=== PATIENT | female | born 1960 | race African-American/Black ===

== ENCOUNTER 2017-08-03 11:01 | Emergency (ER) | payer BC, OTHER ==
[~2017-08-03] VITALS: Ht 154.9 cm; Wt 107.0 kg
[~2017-08-03 11:01] MED LIST: ATOR-2 PO; ATOR20TA65; HYDR12.54; HYDR25TA PO; INSLAN; KEPP500 PO; LISI1TAB11 PO; METF500T4; METF850T2 PO; OLME20TA14 PO
[2017-08-03] MEDS ORDERED: LOSA50TA20 PO (11:12)
[2017-08-03] MEDS ORDERED: AMLO10TA80 PO (11:12)
[2017-08-03] MEDS ORDERED: CHLO25TA2 PO (11:12)
[2017-08-03] MEDS ORDERED: DULA1.5P SQ (11:12)
[2017-08-03] MEDS ORDERED: LEVE500T19 PO (11:12)
[2017-08-03 13:47] VITALS: BP 156/86
== END 2017-08-03 14:32 | disposition home or self-care (01) ==
LOC: ER 11:31
DX: S29.012A Strain of muscle and tendon of back wall of thorax, initial encounter (principal); X58.XXXA Exposure to other specified factors, initial encounter; E11.9 Type 2 diabetes mellitus without complications; I10 Essential (primary) hypertension; M10.9 Gout, unspecified; Z79.4 Long term (current) use of insulin; Z88.5 Allergy status to narcotic agent
CPT/HCPCS: 99282; Z7610

== ENCOUNTER 2024-04-30 14:53 | Inpatient (IN) | payer BC, OTHER ==
[~2024-04-30] VITALS: Ht 162.6 cm; Wt 113.9 kg
[~2024-04-30 14:53] MED LIST changes: +AMLO10TA80 PO; +CHLO25TA2 PO; +DULA1.5P SQ; +LEVE500T19 PO; +LOSA50TA41 PO; +METF-414; +METF-415 PO; -METF500T4; -METF850T2 PO; +OLME20TA13 PO; -OLME20TA14 PO
[2024-04-30 15:50] LABS: HEMATOCRIT. 39.4 % (36.0-48.0); HEMOGLOBIN. 12.6 g/dL (12.0-16.0); MEAN CORPUSCULAR HGB CONC 31.9 g/dL (31.0-37.0); MEAN CORPUSCULAR VOLUME 87.6 fL (81.0-99.0); MEAN PLATELET VOLUME 8.9 fl (7.4-10.4); PLATELET 580 x1000/uL (130-400); RED CELL DISTRIBUTION WIDTH 16.6 % (11.6-14.6); WHITE BLOOD COUNT 17.8 x1000/uL (4.5-11.0)
[2024-04-30 15:51] LABS: DIFFERENTIAL COMMENT 1
[2024-04-30 15:53] LABS: CHLORIDE 99 mEq/L (98-107); POTASSIUM 5.3 mEq/L (3.5-5.1); SODIUM 130 mEq/L (136-145)
[2024-04-30 15:54] LABS: CALCIUM 9.7 mg/dL (8.7-10.4); CARBON DIOXIDE 16 mEq/L (21-32)
[2024-04-30 15:59] LABS: CREATININE 4.2 mg/dL (0.6-1.0); GLUCOSE 204 mg/dL (70-105); TROPONIN I HIGH SENSITIVITY 5 ng/L (3.0-34); UREA NITROGEN BLOOD 73 mg/dL (9-23)
[2024-04-30 16:15] LABS: PLATELET ESTIMATE SLIGHTLY INCREASED
[2024-04-30 16:53] LABS: ALANINE AMINOTRANSFERASE 8 IU/L (10-49); ALBUMIN 4.2 g/dL (3.2-4.8); ASPARTATE AMINOTRANSFERASE 16 IU/L (<34); BILIRUBIN TOTAL 0.3 mg/dL (0.1-1.0)
[2024-04-30 16:56] LABS: BILIRUBIN DIRECT < 0.1 mg/dL (<=3.0)
[2024-04-30 17:04] LABS: LACTIC ACID 2.8 mmol/L (0.4-2.0)
[2024-04-30] MEDS: CEFTRIAXONE 1GM/50ML 50 ML IV ONE (17:18)
[2024-04-30] MEDS: ACETAMINOPHEN 500MG TABLET PO ONE (17:19)
[2024-04-30] MEDS: SODIUM CHLORIDE 0.9% 1000ML BAG (SEPSIS BOLUS) IV ONE (17:23)
[2024-04-30] MEDS: HEPARIN 80 UNITS/KG BOLUS IV NR (22:37)
[2024-04-30] MEDS: HEPARIN 25,000 UNITS PREMIX 250 ML IV SCH (22:47)
[2024-05-01] MEDS ORDERED: HEPARIN BOLUS PRN aPTT <36 IV (04:00)
[2024-05-01] MEDS ORDERED: HEPARIN BOLUS PRN aPTT 37-44 IV (04:00)
[2024-05-01] MEDS ORDERED: CLONIDINE 0.1MG TABLET PO PRN (15:30)
[2024-05-01] MEDS ORDERED: DOCUSATE SODIUM 100MG CAPSULE PO PRN (15:30)
[2024-05-01] MEDS: PIPERACILLIN/TAZO 3.375G/50ML 50 ML IV NR (15:45)
[2024-05-01] MEDS: BLOOD SUGAR DIAGNOSTIC STRIP TEST SCH (16:45)
[2024-05-01] MEDS: INSULIN LISPRO 100 UNITS/ML SUBCUT SCH (17:53)
[2024-05-01] MEDS: ENOXAPARIN 100MG/ML SYR SUBCUT SCH (18:00)
[2024-05-01] MEDS ORDERED: NIFE-49 PO (19:00)
[2024-05-01] MEDS ORDERED: METF-414 PO (19:00)
[2024-05-01] MEDS ORDERED: CRES10 PO (19:00)
[2024-05-01] MEDS ORDERED: ISOS120T13 PO (19:00)
[2024-05-01] MEDS ORDERED: ALLO100T PO (19:00)
[2024-05-01] MEDS ORDERED: DAPA10TA PO (19:00)
[2024-05-01] MEDS ORDERED: LOSA100T33 PO (19:00)
[2024-05-01] MEDS ORDERED: TIRZ10PE SUBCUT (19:00)
[2024-05-01 19:04] LABS: HEMATOCRIT. 39.5 % (36.0-48.0); HEMOGLOBIN. 12.8 g/dL (12.0-16.0); MEAN CORPUSCULAR HEMOGLOBIN 28.4 pg (28.0-32.0); MEAN CORPUSCULAR HGB CONC 32.4 g/dL (31.0-37.0); MEAN CORPUSCULAR VOLUME 87.9 fL (81.0-99.0); MEAN PLATELET VOLUME 9.1 fl (7.4-10.4); PLATELET 564 x1000/uL (130-400); RED BLOOD CELL COUNT 4.49 mill/uL (4.2-5.4); RED CELL DISTRIBUTION WIDTH 16.1 % (11.6-14.6); WHITE BLOOD COUNT 18.1 x1000/uL (4.5-11.0)
[2024-05-01 19:06] LABS: DIFFERENTIAL COMMENT 1
[2024-05-01 19:14] LABS: CHLORIDE 99 mEq/L (98-107)
[2024-05-01 19:28] LABS: PLATELET ESTIMATE NORMAL
[2024-05-01 20:23] LABS: POTASSIUM 6.1 mEq/L (3.5-5.1); SODIUM 131 mEq/L (136-145)
[2024-05-01 20:24] LABS: CALCIUM 9.2 mg/dL (8.7-10.4)
[2024-05-01 20:29] LABS: CREATININE 4.3 mg/dL (0.6-1.0); GLUCOSE 146 mg/dL (70-105)
[2024-05-01 20:30] LABS: LDL CHOLESTEROL 55 mg/dL (5-100); TRIGLYCERIDE 143 mg/dL (0-150); UREA NITROGEN BLOOD 83 mg/dL (9-23)
[2024-05-01 20:31] LABS: ALANINE AMINOTRANSFERASE 11 IU/L (10-49); ASPARTATE AMINOTRANSFERASE 17 IU/L (<34); BILIRUBIN DIRECT 0.1 mg/dL (<=3.0); CHOLESTEROL 136 mg/dL (<200); HDL CHOLESTEROL 51 mg/dL (>65)
[2024-05-01 20:32] LABS: BILIRUBIN TOTAL 0.3 mg/dL (0.1-1.0); PROTEIN TOTAL 6.5 g/dL (6.0-8.3)
[2024-05-01 20:33] LABS: THYROID STIMULATING HORMONE 6.77 uIU/mL (0.55-4.78)
[2024-05-01 20:39] LABS: CARBON DIOXIDE < 10 mEq/L (21-32)
[2024-05-01] MEDS: DILTIAZEM HCL 30MG TABLET PO SCH (22:00)
[2024-05-01 22:05] LABS: PARTIAL THROMBOPLASTIN TIME 31.9 sec (23.4-31.0); PROTHROMBIN TIME 11.2 sec (9.6-11.0)
[2024-05-01] MEDS ORDERED: SODIUM POLYSTYRENE SULFONATE 15 G/60 ML BOT PO ONE (23:00)
[2024-05-01 23:27] VITALS: BP 112/50; PULSE 98; RESP 18; TEMP 35.584
[2024-05-02] VITALS: BP 112/50; PULSE 92; RESP 18; TEMP 35.5584; O2SAT 96
[2024-05-02] MEDS: SODIUM BICARBONATE 8.4% 50MEQ/50ML SYR IV NR (01:02)
[2024-05-02] MEDS: SODIUM ZIRCONIUM CYCLOSILICATE 10GM/PACKET PO NR ×2 (01:02→10:21)
[2024-05-02 01:32] LABS: CREATINE KINASE MB FRACTION 2.7 ng/mL (0.5-3.6)
[2024-05-02 04:00] VITALS: BP 113/50; PULSE 73; RESP 18; TEMP 35.66952; O2SAT 98
[2024-05-02] MEDS: LEVOTHYROXINE SODIUM 100MCG TABLET PO SCH (06:04)
[2024-05-02 07:07] LABS: POTASSIUM 5.2 mEq/L (3.5-5.1)
[2024-05-02 07:08] LABS: CALCIUM 9.5 mg/dL (8.7-10.4)
[2024-05-02 07:12] LABS: CREATININE 4.1 mg/dL (0.6-1.0)
[2024-05-02 07:13] LABS: CREATINE KINASE MB FRACTION 2.6 ng/mL (0.5-3.6)
[2024-05-02 07:17] LABS: HEMATOCRIT. 37.4 % (36.0-48.0); HEMOGLOBIN. 11.9 g/dL (12.0-16.0); MEAN CORPUSCULAR HEMOGLOBIN 27.5 pg (28.0-32.0); MEAN CORPUSCULAR HGB CONC 31.8 g/dL (31.0-37.0); MEAN CORPUSCULAR VOLUME 86.4 fL (81.0-99.0); MEAN PLATELET VOLUME 9.3 fl (7.4-10.4); PLATELET 568 x1000/uL (130-400); RED BLOOD CELL COUNT 4.32 mill/uL (4.2-5.4); RED CELL DISTRIBUTION WIDTH 16.3 % (11.6-14.6)
[2024-05-02 07:19] LABS: DIFFERENTIAL COMMENT 1
[2024-05-02 08:00] VITALS: BP 106/50; PULSE 75; RESP 18; TEMP 36.72516; O2SAT 92
[2024-05-02] MEDS: PIPERACILLIN/TAZO 3.375G/50ML 50 ML IV SCH (08:37)
[2024-05-02] MEDS: ACETAMINOPHEN 325MG TABLET PO PRN (08:38)
[2024-05-02] MEDS ORDERED: SODIUM POLYSTYRENE SULFONATE 15 G/60 ML BOT PO ONE (09:45)
[2024-05-02 12:00] VITALS: BP 122/40; PULSE 81; RESP 20; TEMP 35.72508; O2SAT 96
[2024-05-02 12:37] LABS: CREATINE KINASE 82 IU/L (34-145)
[2024-05-02 15:39] LABS: CLARITY URINE CLOUDY (CLEAR); COLOR URINE DARK YELLOW (YELLOW); GLUCOSE URINE NEGATIVE (NEGATIVE); KETONES URINE NEGATIVE (NEGATIVE); LEUKOCYTE ESTERASE URINE TRACE (NEGATIVE); NITRITE URINE NEGATIVE (NEGATIVE); OCCULT BLOOD URINE 3+ (NEGATIVE); PROTEIN URINE TRACE (NEGATIVE); SPECIFIC GRAVITY URINE 1.021 (1.005-1.030); UROBILINOGEN URINE 0.2 E.U./dL (0.2-1.0)
[2024-05-02 15:46] LABS: *AMPHETAMINES SCREEN URINE NEGATIVE (NEGATIVE); *BARBITURATES SCREEN URINE NEGATIVE (NEGATIVE); *BENZODIAZEPINES SCREEN URINE NEGATIVE (NEGATIVE); *COCAINE SCREEN URINE NEGATIVE (NEGATIVE); CANNABINOID URINE SCREEN NEGATIVE (NEGATIVE); ECSTASY MDMA SCREEN URINE NEGATIVE (NEGATIVE); METHADONE URINE SCREEN NEGATIVE (NEGATIVE); OPIATES URINE SCREEN NEGATIVE (NEGATIVE); PHENCYCLIDINE URINE SCREEN NEGATIVE (NEGATIVE)
[2024-05-02 16:00] VITALS: BP 113/43; PULSE 92; RESP 17; TEMP 37.39188; O2SAT 99
[2024-05-02 16:04] LABS: BACTERIA URINE 2+; SQUAMOUS EPITHELIAL CELL URINE 2+ /lpf (RARE/1+)
[2024-05-02 16:05] LABS: RBC URINE 15-25 /hpf (0-2); WBC URINE 0-2 /hpf (0-2)
[2024-05-02 17:38] LABS: ANISOCYTOSIS 1+; PLATELET ESTIMATE INCREASED
[2024-05-02 20:00] VITALS: BP 132/66; PULSE 94; RESP 20; TEMP 36.61404; O2SAT 97
[2024-05-03] VITALS: BP 107/67; PULSE 89; RESP 19; TEMP 36.55848; O2SAT 97
[2024-05-03 04:00] VITALS: BP 119/71; PULSE 90; RESP 18; TEMP 36.33624; O2SAT 99
[2024-05-03 06:43] LABS: POTASSIUM 4.9 mEq/L (3.5-5.1)
[2024-05-03 06:44] LABS: CALCIUM 9.1 mg/dL (8.7-10.4)
[2024-05-03 06:49] LABS: CREATININE 4.8 mg/dL (0.6-1.0)
[2024-05-03 06:54] LABS: HEMATOCRIT. 36.8 % (36.0-48.0); HEMOGLOBIN. 11.8 g/dL (12.0-16.0); MEAN CORPUSCULAR HEMOGLOBIN 27.6 pg (28.0-32.0); MEAN CORPUSCULAR VOLUME 86.1 fL (81.0-99.0); MEAN PLATELET VOLUME 9.2 fl (7.4-10.4); PLATELET 560 x1000/uL (130-400); RED BLOOD CELL COUNT 4.28 mill/uL (4.2-5.4); WHITE BLOOD COUNT 18.8 x1000/uL (4.5-11.0)
[2024-05-03 07:31] LABS: DIFFERENTIAL COMMENT 1
[2024-05-03 08:00] VITALS: BP 108/42; PULSE 85; RESP 18; TEMP 36.55848; O2SAT 98
[2024-05-03 12:00] VITALS: BP 99/56; PULSE 80; RESP 18; TEMP 36.16956; O2SAT 99
[2024-05-03 15:19] LABS: PLATELET ESTIMATE INCREASED
[2024-05-03 16:00] VITALS: BP 108/50; PULSE 85; RESP 18; TEMP 36.72516; O2SAT 98
[2024-05-03 20:00] VITALS: BP 115/65; PULSE 94; RESP 19; TEMP 36.114; O2SAT 97
[2024-05-04] VITALS: BP 128/79; PULSE 91; RESP 19; TEMP 36.3918; O2SAT 100
[2024-05-04 04:00] VITALS: BP 103/40; PULSE 81; RESP 18; TEMP 36.33624; O2SAT 99
[2024-05-04 06:47] LABS: HEMATOCRIT. 37.3 % (36.0-48.0); HEMOGLOBIN. 11.8 g/dL (12.0-16.0); MEAN CORPUSCULAR HEMOGLOBIN 27.7 pg (28.0-32.0); MEAN CORPUSCULAR HGB CONC 31.7 g/dL (31.0-37.0); MEAN CORPUSCULAR VOLUME 87.4 fL (81.0-99.0); MEAN PLATELET VOLUME 8.9 fl (7.4-10.4); PLATELET 588 x1000/uL (130-400); RED BLOOD CELL COUNT 4.27 mill/uL (4.2-5.4); RED CELL DISTRIBUTION WIDTH 16.1 % (11.6-14.6); WHITE BLOOD COUNT 15.1 x1000/uL (4.5-11.0)
[2024-05-04 06:51] LABS: DIFFERENTIAL COMMENT 1
[2024-05-04 06:55] LABS: PROTHROMBIN TIME 10.9 sec (9.6-11.0)
[2024-05-04 06:56] LABS: CHLORIDE 97 mEq/L (98-107); POTASSIUM 5.2 mEq/L (3.5-5.1); SODIUM 128 mEq/L (136-145)
[2024-05-04 06:59] LABS: CALCIUM 9.4 mg/dL (8.7-10.4); CARBON DIOXIDE 16 mEq/L (21-32)
[2024-05-04 07:04] LABS: GLUCOSE 153 mg/dL (70-105)
[2024-05-04 07:05] LABS: ALBUMIN 3.9 g/dL (3.2-4.8); UREA NITROGEN BLOOD 79 mg/dL (9-23)
[2024-05-04 07:06] LABS: ALANINE AMINOTRANSFERASE 12 IU/L (10-49); ASPARTATE AMINOTRANSFERASE 20 IU/L (<34); BILIRUBIN DIRECT 0.1 mg/dL (<=3.0)
[2024-05-04 07:07] LABS: BILIRUBIN TOTAL 0.3 mg/dL (0.1-1.0); PROTEIN TOTAL 6.6 g/dL (6.0-8.3)
[2024-05-04 08:00] VITALS: BP 101/47; PULSE 89; RESP 16; TEMP 36.00288; O2SAT 100
[2024-05-04 09:03] LABS: CREATININE 5.5 mg/dL (0.6-1.0)
[2024-05-04 09:04] LABS: PHOSPHORUS 9.1 mg/dL (2.5-4.9)
[2024-05-04] MEDS ORDERED: SODIUM POLYSTYRENE SULFONATE 15 G/60 ML BOT PO ONE (10:30)
[2024-05-04 12:00] VITALS: BP 129/51; PULSE 83; RESP 18; TEMP 36.16956; O2SAT 100
[2024-05-04] MEDS: SEVELAMER CARBONATE 800 MG TABLET PO SCH (12:42)
[2024-05-04] MEDS: SODIUM ZIRCONIUM CYCLOSILICATE 10GM/PACKET PO NR (12:44)
[2024-05-04] MEDS: ONDANSETRON HCL 4MG/2ML INJ IV PRN (12:44)
[2024-05-04 12:52] LABS: ANISOCYTOSIS 1+; PLATELET ESTIMATE INCREAS
[2024-05-04] MEDS ORDERED: SEVELAMER CARBONATE 800 MG TABLET PO SCH (14:00)
[2024-05-04 16:00] VITALS: BP 93/63; PULSE 53; RESP 18; TEMP 35.78064; O2SAT 97
[2024-05-04 20:20] VITALS: BP 97/55; PULSE 47; PULSE 90; RESP 18; TEMP 35.89176; O2SAT 99
[2024-05-05] VITALS (15 sets, daily range): BP systolic 83–119; BP diastolic 38–63; PULSE 69–103; RESP 16–22; TEMP 35.5584–36.33624; O2SAT 94–100
[2024-05-05] MEDS: FOLIC ACID/VITAMIN B COMP W-C TABLET PO SCH (09:00)
[2024-05-05] MEDS ORDERED: LIDOCAINE HCL 1% 10 MG/ML 10ML VIAL ONE (09:12)
[2024-05-05] MEDS: SEVELAMER CARBONATE 800 MG TABLET PO SCH (13:10)
[2024-05-05 13:50] LABS: HEMATOCRIT. 32.9 % (36.0-48.0); HEMOGLOBIN. 10.7 g/dL (12.0-16.0); MEAN CORPUSCULAR HEMOGLOBIN 27.5 pg (28.0-32.0); MEAN CORPUSCULAR HGB CONC 32.4 g/dL (31.0-37.0); MEAN CORPUSCULAR VOLUME 84.9 fL (81.0-99.0); MEAN PLATELET VOLUME 8.5 fl (7.4-10.4); PLATELET 492 x1000/uL (130-400); RED BLOOD CELL COUNT 3.88 mill/uL (4.2-5.4); RED CELL DISTRIBUTION WIDTH 16.2 % (11.6-14.6); WHITE BLOOD COUNT 23.8 x1000/uL (4.5-11.0)
[2024-05-05 13:56] LABS: CHLORIDE 101 mEq/L (98-107); POTASSIUM 3.7 mEq/L (3.5-5.1); SODIUM 135 mEq/L (136-145)
[2024-05-05 13:57] LABS: CALCIUM 8.8 mg/dL (8.7-10.4); CARBON DIOXIDE 24 mEq/L (21-32)
[2024-05-05 13:58] LABS: PROTHROMBIN TIME 11.3 sec (9.6-11.0)
[2024-05-05 14:02] LABS: GLUCOSE 119 mg/dL (70-105); UREA NITROGEN BLOOD 46 mg/dL (9-23)
[2024-05-05 14:04] LABS: PHOSPHORUS 5.1 mg/dL (2.5-4.9)
[2024-05-05 14:05] LABS: CREATININE 3.3 mg/dL (0.6-1.0)
[2024-05-05 14:09] LABS: HEPATITIS B SURFACE AB 4.7 mIU/mL (<10)
[2024-05-05 14:14] LABS: DIFFERENTIAL COMMENT 1
[2024-05-05 14:20] LABS: HEPATITIS B SURFACE ANTIGEN NEGATIVE (Negative)
[2024-05-05 14:40] LABS: HEPATITIS A AB IGM NEGATIVE (Negative)
[2024-05-05 14:41] LABS: HEPATITIS B CORE AB IGM NEGATIVE (Negative)
[2024-05-05 14:42] LABS: HEPATITIS C AB NON REACTIVE (Neg) (Negative)
[2024-05-05 17:05] LABS: ANISOCYTOSIS 1+; PLATELET ESTIMATE INCREASED
[2024-05-05] MEDS: IPRATROPIUM/ALBUTEROL 0.5-3(2.5)MG/3ML NEB HHN PRN (23:48)
[2024-05-06] VITALS (9 sets, daily range): BP systolic 89–102; BP diastolic 35–71; PULSE 47–99; RESP 16–24; TEMP 35.89176–37.00296; O2SAT 94–98
[2024-05-06 07:26] LABS: CARBON DIOXIDE 20 mEq/L (21-32); CHLORIDE 96 mEq/L (98-107); POTASSIUM 4.7 mEq/L (3.5-5.1); SODIUM 131 mEq/L (136-145)
[2024-05-06 07:27] LABS: CALCIUM 8.9 mg/dL (8.7-10.4)
[2024-05-06 07:28] LABS: HEMATOCRIT. 32.1 % (36.0-48.0); HEMOGLOBIN. 10.5 g/dL (12.0-16.0); MEAN CORPUSCULAR HEMOGLOBIN 27.9 pg (28.0-32.0); MEAN CORPUSCULAR HGB CONC 32.8 g/dL (31.0-37.0); MEAN PLATELET VOLUME 8.8 fl (7.4-10.4); PLATELET 446 x1000/uL (130-400); RED BLOOD CELL COUNT 3.78 mill/uL (4.2-5.4); RED CELL DISTRIBUTION WIDTH 16.1 % (11.6-14.6); WHITE BLOOD COUNT 21.4 x1000/uL (4.5-11.0)
[2024-05-06 07:32] LABS: GLUCOSE 192 mg/dL (70-105); UREA NITROGEN BLOOD 75 mg/dL (9-23)
[2024-05-06 07:33] LABS: CREATININE 5.9 mg/dL (0.6-1.0)
[2024-05-06 07:34] LABS: DIFFERENTIAL COMMENT 1
[2024-05-06 08:14] LABS: PHOSPHORUS 9.2 mg/dL (2.5-4.9)
[2024-05-06] MEDS: IPRATROPIUM/ALBUTEROL 0.5-3(2.5)MG/3ML NEB HHN SCH (09:39)
[2024-05-06 11:55] LABS: ANISOCYTOSIS 1+; PLATELET ESTIMATE SLIGHTLY INCREASED
[2024-05-06] MEDS: MIDODRINE HCL 5MG TABLET PO SCH (15:40)
[2024-05-06] MEDS: MEROPENEM 1G/100ML 100 ML IV SCH (18:16)
[2024-05-06] MEDS: ALBUMIN HUMAN 25GM/100ML (25%) IV SCH (21:29)
[2024-05-07] VITALS (8 sets, daily range): BP systolic 99–117; BP diastolic 40–60; PULSE 55–101; RESP 16–20; TEMP 36.05844–37.05852; O2SAT 95–100
[2024-05-07 06:16] LABS: POTASSIUM 4.7 mEq/L (3.5-5.1)
[2024-05-07 06:17] LABS: CALCIUM 8.6 mg/dL (8.7-10.4)
[2024-05-07 06:18] LABS: HEMATOCRIT. 33.5 % (36.0-48.0); HEMOGLOBIN. 10.8 g/dL (12.0-16.0); MEAN CORPUSCULAR HEMOGLOBIN 27.6 pg (28.0-32.0); MEAN CORPUSCULAR HGB CONC 32.2 g/dL (31.0-37.0); MEAN CORPUSCULAR VOLUME 85.8 fL (81.0-99.0); MEAN PLATELET VOLUME 8.7 fl (7.4-10.4); PLATELET 385 x1000/uL (130-400); RED CELL DISTRIBUTION WIDTH 15.6 % (11.6-14.6); WHITE BLOOD COUNT 23.7 x1000/uL (4.5-11.0)
[2024-05-07 06:28] LABS: CREATININE 6.3 mg/dL (0.6-1.0)
[2024-05-07 06:37] LABS: DIFFERENTIAL COMMENT 1
[2024-05-07 16:36] LABS: NUCLEATED RED BLOOD CELLS 1 /100 WBC; PLATELET ESTIMATE NORMAL
[2024-05-08] VITALS (16 sets, daily range): BP systolic 80–117; BP diastolic 32–68; PULSE 82–111; RESP 18–20; TEMP 36.61404–37.61412; O2SAT 95–100
[2024-05-08 05:43] LABS: HEMATOCRIT. 35.5 % (36.0-48.0); HEMOGLOBIN. 11.3 g/dL (12.0-16.0); MEAN CORPUSCULAR HEMOGLOBIN 27.4 pg (28.0-32.0); MEAN CORPUSCULAR HGB CONC 31.9 g/dL (31.0-37.0); MEAN CORPUSCULAR VOLUME 85.8 fL (81.0-99.0); MEAN PLATELET VOLUME 8.7 fl (7.4-10.4); PLATELET 394 x1000/uL (130-400); RED BLOOD CELL COUNT 4.14 mill/uL (4.2-5.4); RED CELL DISTRIBUTION WIDTH 15.8 % (11.6-14.6); WHITE BLOOD COUNT 23.2 x1000/uL (4.5-11.0)
[2024-05-08 06:18] LABS: CALCIUM 8.7 mg/dL (8.7-10.4); CARBON DIOXIDE 21 mEq/L (21-32); CHLORIDE 96 mEq/L (98-107); POTASSIUM 4.9 mEq/L (3.5-5.1); SODIUM 130 mEq/L (136-145)
[2024-05-08 06:24] LABS: GLUCOSE 147 mg/dL (70-105); UREA NITROGEN BLOOD 82 mg/dL (9-23)
[2024-05-08 06:53] LABS: DIFFERENTIAL COMMENT 1
[2024-05-08 07:43] LABS: CREATININE 7.1 mg/dL (0.6-1.0)
[2024-05-08 14:32] LABS: NUCLEATED RED BLOOD CELLS 1 /100 WBC; PLATELET ESTIMATE NORMAL
[2024-05-09] VITALS (12 sets, daily range): BP systolic 95–112; BP diastolic 4–69; PULSE 88–100; RESP 16–20; TEMP 35.94732–36.9474; O2SAT 94–100
[2024-05-10] VITALS (16 sets, daily range): BP systolic 94–139; BP diastolic 21–107; PULSE 75–104; RESP 17–22; TEMP 36.114–37.61412; O2SAT 90–100
[2024-05-10 06:30] LABS: CARBON DIOXIDE 20 mEq/L (21-32); CHLORIDE 98 mEq/L (98-107); POTASSIUM 5.3 mEq/L (3.5-5.1); SODIUM 129 mEq/L (136-145)
[2024-05-10 06:31] LABS: CALCIUM 8.6 mg/dL (8.7-10.4)
[2024-05-10 06:34] LABS: EOSINOPHILS % 0.4 % (0.0-5.0); HEMATOCRIT. 35.6 % (36.0-48.0); HEMOGLOBIN. 11.4 g/dL (12.0-16.0); LYMPHOCYTES % 7.8 % (20.0-50.0); MEAN CORPUSCULAR HEMOGLOBIN 27.6 pg (28.0-32.0); MEAN CORPUSCULAR VOLUME 86.1 fL (81.0-99.0); MONOCYTES % 6.3 % (2.0-8.0); NEUTROPHILS % 85.5 % (40.0-76.0); PLATELET 341 x1000/uL (130-400); RED BLOOD CELL COUNT 4.13 mill/uL (4.2-5.4); WHITE BLOOD COUNT 20.4 x1000/uL (4.5-11.0)
[2024-05-10 06:36] LABS: GLUCOSE 135 mg/dL (70-105); UREA NITROGEN BLOOD 57 mg/dL (9-23)
[2024-05-10 06:38] LABS: PHOSPHORUS 7.2 mg/dL (2.5-4.9)
[2024-05-10 06:41] LABS: CREATININE 6.9 mg/dL (0.6-1.0)
[2024-05-11] VITALS (10 sets, daily range): BP systolic 95–119; BP diastolic 23–65; PULSE 56–91; RESP 18–20; TEMP 36.114–36.3918; O2SAT 96–100
[2024-05-11] MEDS: MAGNESIUM/ALUMINUM HYDROXIDE/SIMETHICONE 30ML UDC PO PRN (00:30)
[2024-05-11 06:50] LABS: CALCIUM 8.8 mg/dL (8.7-10.4); POTASSIUM 5.3 mEq/L (3.5-5.1)
[2024-05-11 07:32] LABS: CREATININE 6.3 mg/dL (0.6-1.0)
[2024-05-11] MEDS: FAMOTIDINE 20MG/2ML VIAL IV SCH (08:06)
[2024-05-11] MEDS: SODIUM POLYSTYRENE SULFONATE 15 G/60 ML BOT PO NR (10:52)
[2024-05-11 11:09] LABS: HEMATOCRIT. 35.8 % (36.0-48.0); HEMOGLOBIN. 11.4 g/dL (12.0-16.0); MEAN CORPUSCULAR HEMOGLOBIN 27.9 pg (28.0-32.0); MEAN CORPUSCULAR HGB CONC 31.9 g/dL (31.0-37.0); MEAN CORPUSCULAR VOLUME 87.3 fL (81.0-99.0); MEAN PLATELET VOLUME 9.4 fl (7.4-10.4); PLATELET 314 x1000/uL (130-400); RED CELL DISTRIBUTION WIDTH 16.1 % (11.6-14.6); WHITE BLOOD COUNT 21.9 x1000/uL (4.5-11.0)
[2024-05-11 11:11] LABS: DIFFERENTIAL COMMENT 1
[2024-05-11 17:21] LABS: ANISOCYTOSIS 1+; PLATELET ESTIMATE NORMAL
[2024-05-12] VITALS (11 sets, daily range): BP systolic 89–131; BP diastolic 35–74; PULSE 84–104; RESP 18–22; TEMP 35.8362–36.6696; O2SAT 96–100
[2024-05-12 09:14] LABS: BASOPHILS % 0.1 % (0.0-2.0); EOSINOPHILS % 0.2 % (0.0-5.0); HEMATOCRIT. 34.5 % (36.0-48.0); HEMOGLOBIN. 10.9 g/dL (12.0-16.0); LYMPHOCYTES % 7.7 % (20.0-50.0); MEAN CORPUSCULAR HEMOGLOBIN 27.5 pg (28.0-32.0); MEAN CORPUSCULAR HGB CONC 31.6 g/dL (31.0-37.0); MEAN CORPUSCULAR VOLUME 87.1 fL (81.0-99.0); MEAN PLATELET VOLUME 8.6 fl (7.4-10.4); MONOCYTES % 2.9 % (2.0-8.0); NEUTROPHILS % 89.1 % (40.0-76.0); PLATELET 285 x1000/uL (130-400); RED BLOOD CELL COUNT 3.96 mill/uL (4.2-5.4); RED CELL DISTRIBUTION WIDTH 15.9 % (11.6-14.6)
[2024-05-12 09:17] LABS: CHLORIDE 104 mEq/L (98-107); POTASSIUM 4.2 mEq/L (3.5-5.1); SODIUM 135 mEq/L (136-145)
[2024-05-12 09:18] LABS: CALCIUM 8.7 mg/dL (8.7-10.4); CARBON DIOXIDE 21 mEq/L (21-32)
[2024-05-12 09:23] LABS: CREATININE 4.6 mg/dL (0.6-1.0); GLUCOSE 152 mg/dL (70-105); UREA NITROGEN BLOOD 32 mg/dL (9-23)
[2024-05-12 16:08] LABS: PROTHROMBIN TIME 11.2 sec (9.6-11.0)
[2024-05-13] VITALS: BP 93/36; PULSE 75; RESP 19; TEMP 36.28068; O2SAT 95
[2024-05-13 04:00] VITALS: BP 106/39; PULSE 73; RESP 19; TEMP 36.50292; O2SAT 97
[2024-05-13 08:00] VITALS: BP 102/57; PULSE 81; RESP 18; TEMP 36.33624; O2SAT 100
[2024-05-13 10:53] LABS: HEMATOCRIT. 30.9 % (36.0-48.0); HEMOGLOBIN. 9.9 g/dL (12.0-16.0); MEAN CORPUSCULAR HEMOGLOBIN 27.5 pg (28.0-32.0); MEAN CORPUSCULAR HGB CONC 32.1 g/dL (31.0-37.0); MEAN CORPUSCULAR VOLUME 85.6 fL (81.0-99.0); PLATELET 288 x1000/uL (130-400); RED BLOOD CELL COUNT 3.61 mill/uL (4.2-5.4); RED CELL DISTRIBUTION WIDTH 16.1 % (11.6-14.6); WHITE BLOOD COUNT 25.9 x1000/uL (4.5-11.0)
[2024-05-13 10:54] LABS: DIFFERENTIAL COMMENT 1
[2024-05-13 12:00] VITALS: BP 107/44; PULSE 90; RESP 20; TEMP 36.114; O2SAT 100
[2024-05-13 16:00] VITALS: BP 105/51; PULSE 81; RESP 20; TEMP 36.114; O2SAT 99
[2024-05-13 20:34] VITALS: BP 102/38; PULSE 81; RESP 19; TEMP 36.16956; O2SAT 98
[2024-05-14] VITALS (14 sets, daily range): BP systolic 80–110; BP diastolic 39–65; PULSE 61–113; RESP 16–58; TEMP 36.16956–36.61404; O2SAT 93–100
[2024-05-14 02:48] LABS: ANISOCYTOSIS 1+; PLATELET ESTIMATE NORMAL
[2024-05-14] MEDS: LORAZEPAM 1MG TABLET PO PRN (04:28)
[2024-05-14 10:25] LABS: HEMATOCRIT. 31.9 % (36.0-48.0); HEMOGLOBIN. 9.8 g/dL (12.0-16.0); MEAN CORPUSCULAR HEMOGLOBIN 26.8 pg (28.0-32.0); MEAN CORPUSCULAR HGB CONC 30.6 g/dL (31.0-37.0); MEAN CORPUSCULAR VOLUME 87.6 fL (81.0-99.0); MEAN PLATELET VOLUME 8.7 fl (7.4-10.4); PLATELET 307 x1000/uL (130-400); RED BLOOD CELL COUNT 3.64 mill/uL (4.2-5.4); WHITE BLOOD COUNT 27.6 x1000/uL (4.5-11.0)
[2024-05-14 10:32] LABS: DIFFERENTIAL COMMENT 1
[2024-05-14 10:44] LABS: POTASSIUM 5.9 mEq/L (3.5-5.1)
[2024-05-14 10:46] LABS: CALCIUM 8.4 mg/dL (8.7-10.4)
[2024-05-14 10:58] LABS: CREATININE 7.2 mg/dL (0.6-1.0)
[2024-05-14 14:08] LABS: ANISOCYTOSIS 1+; PLATELET ESTIMATE NORMAL
[2024-05-14] MEDS: LACTOBACILLUS GG CAPSULE PO SCH (17:15)
[2024-05-14 17:55] LABS: BG BASE EXCESS -3.9 mmol/L (-2.0-3.0); BG CARBOXYHEMOGLOBIN 0.3 % (0.5-1.5); BG DEOXYHEMOGLOBIN 0.9 % (0.0-5.0); BG FRACTION INSPIRED OXYGEN 32; BG HCO3 ACT 17.9 mmol/L (21.0-28.0); BG OXYGEN SATURATION 99.1 % (94.0-98.0); BG OXYHEMOGLOBIN 98.8 % (94.0-98.0); BG PCO2 23.6 mmHg (32.0-45.0); BG PH 7.498 (7.350-7.450); BG PO2 145.4 mmHg (83.0-108.0); BG SAMPLE SITE LEFT BRACHIAL; BG VENT MODE NASAL CANNULA
[2024-05-14 18:33] LABS: LACTIC ACID 5.3 mmol/L (0.4-2.0)
[2024-05-14] MEDS: IPRATROPIUM/ALBUTEROL 0.5-3(2.5)MG/3ML NEB HHN SCH (21:14)
[2024-05-15] VITALS (14 sets, daily range): BP systolic 80–112; BP diastolic 40–88; PULSE 48–106; RESP 16–20; TEMP 35.89176–36.6696; O2SAT 97–100
[2024-05-15 06:42] LABS: POTASSIUM 5.3 mEq/L (3.5-5.1)
[2024-05-15 06:43] LABS: CALCIUM 8.8 mg/dL (8.7-10.4)
[2024-05-15 06:54] LABS: CREATININE 6.5 mg/dL (0.6-1.0)
[2024-05-15 06:57] LABS: HEMATOCRIT. 32.5 % (36.0-48.0); HEMOGLOBIN. 10.3 g/dL (12.0-16.0); MEAN CORPUSCULAR HEMOGLOBIN 27.5 pg (28.0-32.0); MEAN CORPUSCULAR HGB CONC 31.7 g/dL (31.0-37.0); MEAN CORPUSCULAR VOLUME 86.8 fL (81.0-99.0); MEAN PLATELET VOLUME 9.5 fl (7.4-10.4); PLATELET 278 x1000/uL (130-400); RED BLOOD CELL COUNT 3.74 mill/uL (4.2-5.4); WHITE BLOOD COUNT 28.7 x1000/uL (4.5-11.0)
[2024-05-15 07:25] LABS: DIFFERENTIAL COMMENT 1
[2024-05-15 10:18] LABS: HEMOGLOBIN. 10.2 g/dL (12.0-16.0); MEAN CORPUSCULAR HEMOGLOBIN 27.5 pg (28.0-32.0); MEAN CORPUSCULAR HGB CONC 31.8 g/dL (31.0-37.0); MEAN CORPUSCULAR VOLUME 86.4 fL (81.0-99.0); MEAN PLATELET VOLUME 8.9 fl (7.4-10.4); PLATELET 287 x1000/uL (130-400); RED CELL DISTRIBUTION WIDTH 16.1 % (11.6-14.6); WHITE BLOOD COUNT 24.7 x1000/uL (4.5-11.0)
[2024-05-15 10:26] LABS: DIFFERENTIAL COMMENT 1
[2024-05-15 10:28] LABS: POTASSIUM 5.6 mEq/L (3.5-5.1)
[2024-05-15 10:29] LABS: CALCIUM 8.6 mg/dL (8.7-10.4)
[2024-05-15 10:36] LABS: CREATININE 6.7 mg/dL (0.6-1.0)
[2024-05-15 13:12] LABS: ANISOCYTOSIS 1+; PLATELET ESTIMATE NORMAL
[2024-05-15] MEDS: AZITHROMYCIN 500 MG TABLET PO SCH (14:04)
[2024-05-15 14:35] LABS: ANISOCYTOSIS 1+; PLATELET ESTIMATE NORMAL
[2024-05-15] MEDS: VANCOMYCIN 1,750 MG in DEXT 5% WATER 500 ML IV NR (16:13)
[2024-05-15] MEDS: MEROPENEM 1G/100ML 100 ML IV SCH (17:18)
[2024-05-15] MEDS: ZOLPIDEM TARTRATE 5MG TABLET PO NR (23:59)
[2024-05-16] VITALS (10 sets, daily range): BP systolic 89–146; BP diastolic 42–60; PULSE 39–102; RESP 17–23; TEMP 36.28068–37.66968; O2SAT 94–98
[2024-05-16 06:22] LABS: CHLORIDE 103 mEq/L (98-107); POTASSIUM 5.2 mEq/L (3.5-5.1); SODIUM 138 mEq/L (136-145)
[2024-05-16 06:24] LABS: CALCIUM 8.7 mg/dL (8.7-10.4); CARBON DIOXIDE 23 mEq/L (21-32)
[2024-05-16 06:29] LABS: GLUCOSE 177 mg/dL (70-105); UREA NITROGEN BLOOD 47 mg/dL (9-23)
[2024-05-16 06:31] LABS: ALANINE AMINOTRANSFERASE 12 IU/L (10-49); ASPARTATE AMINOTRANSFERASE 57 IU/L (<34); BILIRUBIN TOTAL 0.2 mg/dL (0.1-1.0)
[2024-05-16 06:32] LABS: PROTEIN TOTAL 5.2 g/dL (6.0-8.3)
[2024-05-16 06:42] LABS: HEMATOCRIT. 29.2 % (36.0-48.0); HEMOGLOBIN. 9.1 g/dL (12.0-16.0); MEAN CORPUSCULAR HGB CONC 31.1 g/dL (31.0-37.0); MEAN CORPUSCULAR VOLUME 86.8 fL (81.0-99.0); MEAN PLATELET VOLUME 9.4 fl (7.4-10.4); PLATELET 264 x1000/uL (130-400); RED BLOOD CELL COUNT 3.36 mill/uL (4.2-5.4); RED CELL DISTRIBUTION WIDTH 16.1 % (11.6-14.6); WHITE BLOOD COUNT 23.9 x1000/uL (4.5-11.0)
[2024-05-16 08:04] LABS: BILIRUBIN DIRECT < 0.1 mg/dL (<=3.0); CREATININE 6.1 mg/dL (0.6-1.0)
[2024-05-16 08:09] LABS: DIFFERENTIAL COMMENT 1
[2024-05-16] MEDS: FAMOTIDINE 20MG/2ML VIAL IV SCH (08:36)
[2024-05-16 09:41] LABS: HEMOGLOBIN. 9.7 g/dL (12.0-16.0); MEAN CORPUSCULAR HEMOGLOBIN 26.8 pg (28.0-32.0); MEAN CORPUSCULAR HGB CONC 30.3 g/dL (31.0-37.0); MEAN CORPUSCULAR VOLUME 88.4 fL (81.0-99.0); MEAN PLATELET VOLUME 9.2 fl (7.4-10.4); PLATELET 267 x1000/uL (130-400); RED BLOOD CELL COUNT 3.62 mill/uL (4.2-5.4); RED CELL DISTRIBUTION WIDTH 16.5 % (11.6-14.6); WHITE BLOOD COUNT 26.4 x1000/uL (4.5-11.0)
[2024-05-16 09:47] LABS: DIFFERENTIAL COMMENT 1
[2024-05-16 10:22] LABS: POTASSIUM 5.5 mEq/L (3.5-5.1)
[2024-05-16 10:23] LABS: CALCIUM 8.8 mg/dL (8.7-10.4)
[2024-05-16 10:29] LABS: CREATININE 6.3 mg/dL (0.6-1.0)
[2024-05-16 20:18] LABS: ANISOCYTOSIS 1+; PLATELET ESTIMATE NORMAL
[2024-05-16 20:56] LABS: PLATELET ESTIMATE NORMAL
[2024-05-17] VITALS (42 sets, daily range): BP systolic 61–141; BP diastolic 19–90; PULSE 42–117; RESP 12–39; TEMP 36.16956–37.66968; O2SAT 92–100
[2024-05-17] MEDS: SODIUM POLYSTYRENE SULFONATE 15 G/60 ML BOT PO NR (01:02)
[2024-05-17 06:21] LABS: CHLORIDE 102 mEq/L (98-107); POTASSIUM 5.8 mEq/L (3.5-5.1); SODIUM 137 mEq/L (136-145)
[2024-05-17 06:22] LABS: CARBON DIOXIDE 18 mEq/L (21-32)
[2024-05-17 06:27] LABS: GLUCOSE 168 mg/dL (70-105)
[2024-05-17 06:28] LABS: UREA NITROGEN BLOOD 52 mg/dL (9-23)
[2024-05-17 07:23] LABS: CREATININE 6.9 mg/dL (0.6-1.0)
[2024-05-17 08:31] LABS: TROPONIN I HIGH SENSITIVITY 15 ng/L (3.0-34)
[2024-05-17] MEDS ORDERED: SODIUM POLYSTYRENE SULFONATE 15 G/60 ML BOT PO ONE (09:00)
[2024-05-17] MEDS: SODIUM ZIRCONIUM CYCLOSILICATE 10GM/PACKET PO NR ×2 (09:00→16:51)
[2024-05-17 09:22] LABS: BG BASE EXCESS -11.3 mmol/L (-2.0-3.0); BG CARBOXYHEMOGLOBIN 0.3 % (0.5-1.5); BG DEOXYHEMOGLOBIN 0.2 % (0.0-5.0); BG FRACTION INSPIRED OXYGEN 100; BG HCO3 ACT 14.1 mmol/L (21.0-28.0); BG METHEMOGLOBIN 0.1 % (0.5-1.5); BG OXYGEN SATURATION 99.8 % (94.0-98.0); BG OXYHEMOGLOBIN 99.4 % (94.0-98.0); BG PCO2 29.7 mmHg (32.0-45.0); BG PH 7.293 (7.350-7.450); BG PO2 313.6 mmHg (83.0-108.0); BG SAMPLE SITE RIGHT RADIAL; BG TOTAL HEMOGLOBIN 9.9 g/dL (12.0-16.0); BG VENT MODE MASK - NRB
[2024-05-17] MEDS ORDERED: CEFTRIAXONE 2GM/50ML 50 ML IV SCH (11:00)
[2024-05-17 12:16] LABS: HEMATOCRIT. 27.5 % (36.0-48.0); HEMOGLOBIN. 8.6 g/dL (12.0-16.0); MEAN CORPUSCULAR HEMOGLOBIN 27.2 pg (28.0-32.0); MEAN CORPUSCULAR HGB CONC 31.1 g/dL (31.0-37.0); MEAN CORPUSCULAR VOLUME 87.4 fL (81.0-99.0); MEAN PLATELET VOLUME 9.1 fl (7.4-10.4); RED BLOOD CELL COUNT 3.14 mill/uL (4.2-5.4); WHITE BLOOD COUNT 25.7 x1000/uL (4.5-11.0)
[2024-05-17 12:23] LABS: DIFFERENTIAL COMMENT 1; PLATELET 220 x1000/uL (130-400)
[2024-05-17 12:30] LABS: AMMONIA < 17 uMol/L (<32)
[2024-05-17 14:09] LABS: NUCLEATED RED BLOOD CELLS 1 /100 WBC
[2024-05-17 14:10] LABS: ANISOCYTOSIS 1+; PLATELET ESTIMATE NORMAL
[2024-05-17] MEDS ORDERED: CALCIUM GLUCONATE 1,000 MG in DEXT 5% WATER 90 ML IV STA (14:49)
[2024-05-17] MEDS: ALBUMIN HUMAN 25GM/100ML (25%) IV NR (15:14)
[2024-05-17] MEDS ORDERED: NOREPINEPHRINE 8MG/250ML PMX 250 ML IV PRN (15:15)
[2024-05-17 15:21] LABS: BG CARBOXYHEMOGLOBIN 0.3 % (0.5-1.5); BG DEOXYHEMOGLOBIN 3.1 % (0.0-5.0); BG FRACTION INSPIRED OXYGEN 40; BG HCO3 ACT 14.9 mmol/L (21.0-28.0); BG METHEMOGLOBIN 0.3 % (0.5-1.5); BG OXYGEN SATURATION 96.9 % (94.0-98.0); BG OXYHEMOGLOBIN 96.3 % (94.0-98.0); BG PH 7.375 (7.350-7.450); BG PO2 94.4 mmHg (83.0-108.0); BG SAMPLE SITE RIGHT RADIAL; BG TOTAL HEMOGLOBIN 9.9 g/dL (12.0-16.0); BG VENT MODE NASAL CANNULA
[2024-05-17] MEDS: SODIUM BICARBONATE 8.4% 50MEQ/50ML SYR IV SCH (15:45)
[2024-05-17] MEDS: ALBUMIN HUMAN 25GM/100ML (25%) IV SCH (16:00)
[2024-05-17] MEDS: SODIUM BICARBONATE 8.4% 50MEQ/50ML SYR IV NR (16:50)
[2024-05-17] MEDS: DEXTROSE 50% WATER 50ML SYRINGE IV NR (16:50)
[2024-05-17] MEDS: INSULIN REGULAR (HUMULIN R) 1000UNITS/10ML VIAL IV NR (16:51)
[2024-05-17] MEDS: ONDANSETRON HCL 4MG/2ML INJ IV PRN (17:18)
[2024-05-17] MEDS: CALCIUM GLUCONATE 1GM PREMIX 50 ML IV NR (17:38)
[2024-05-17] MEDS: PHENYLEPHRINE 100 MG in DEXT 5% WATER 240 ML IV PRN (17:52)
[2024-05-17] MEDS ORDERED: PHENYLEPHRINE 100 MG in DEXT 5% WATER 240 ML IV PRN (18:30)
[2024-05-17] MEDS: NOREPINEPHRINE 32 MG in DEXT 5% WATER 218 ML IV PRN (19:31)
[2024-05-17] MEDS: VASOPRESSIN 20 UNIT in SODIUM CHLORIDE 0.9% 99 ML IV PRN (19:38)
[2024-05-17] MEDS ORDERED: DEXTROSE 50% WATER 50ML SYRINGE IV PRN (23:00)
[2024-05-18] VITALS (122 sets, daily range): BP systolic 41–162; BP diastolic 23–93; PULSE 0–133; RESP 10–38; TEMP 36.50292–39.4476; O2SAT 28–100
[2024-05-18 04:40] LABS: HEMATOCRIT. 25.9 % (36.0-48.0); HEMOGLOBIN. 7.8 g/dL (12.0-16.0); MEAN CORPUSCULAR HEMOGLOBIN 26.7 pg (28.0-32.0); MEAN CORPUSCULAR HGB CONC 30.3 g/dL (31.0-37.0); MEAN CORPUSCULAR VOLUME 88.1 fL (81.0-99.0); MEAN PLATELET VOLUME 8.6 fl (7.4-10.4); PLATELET 140 x1000/uL (130-400); RED BLOOD CELL COUNT 2.94 mill/uL (4.2-5.4); RED CELL DISTRIBUTION WIDTH 16.6 % (11.6-14.6); WHITE BLOOD COUNT 23.8 x1000/uL (4.5-11.0)
[2024-05-18 04:57] LABS: DIFFERENTIAL COMMENT 1
[2024-05-18 05:04] LABS: CHLORIDE 103 mEq/L (98-107); POTASSIUM 4.6 mEq/L (3.5-5.1); SODIUM 138 mEq/L (136-145)
[2024-05-18 05:05] LABS: CARBON DIOXIDE 20 mEq/L (21-32)
[2024-05-18 05:10] LABS: GLUCOSE 213 mg/dL (70-105); UREA NITROGEN BLOOD 39 mg/dL (9-23)
[2024-05-18 05:12] LABS: ALANINE AMINOTRANSFERASE 14 IU/L (10-49); ALBUMIN 3.6 g/dL (3.2-4.8); ASPARTATE AMINOTRANSFERASE 77 IU/L (<34); BILIRUBIN DIRECT 0.3 mg/dL (<=3.0); PHOSPHORUS 6.7 mg/dL (2.5-4.9)
[2024-05-18 05:13] LABS: BILIRUBIN TOTAL 0.6 mg/dL (0.1-1.0); PROTEIN TOTAL 5.6 g/dL (6.0-8.3)
[2024-05-18 05:14] LABS: CREATININE 4.8 mg/dL (0.6-1.0)
[2024-05-18] MEDS: VANCOMYCIN 1GM/200ML PMX (BAXTER) IV NR (05:15)
[2024-05-18 06:03] LABS: GIANT PLATELETS 1+; NUCLEATED RED BLOOD CELLS 3 /100 WBC; PLATELET ESTIMATE NORMAL
[2024-05-18] MEDS ORDERED: BLOOD SUGAR DIAGNOSTIC STRIP TEST SCH (06:30)
[2024-05-18] MEDS: INSULIN LISPRO 100 UNITS/ML SUBCUT SCH (06:57)
[2024-05-18] MEDS: ALBUMIN HUMAN 25GM/100ML (25%) IV NR (08:00)
[2024-05-18] MEDS: EPINEPHRINE 10 MG in SODIUM CHLORIDE 0.9% 240 ML IV PRN (08:35)
[2024-05-18 09:33] LABS: BG BASE EXCESS -6.8 mmol/L (-2.0-3.0); BG FRACTION INSPIRED OXYGEN 100; BG PCO2 34.1 mmHg (32.0-45.0); BG PO2 225.7 mmHg (83.0-108.0); BG SAMPLE SITE RIGHT RADIAL; BG VENT MODE VENT - AC
[2024-05-18] MEDS: HYDROCORTISONE SOD SUCCINATE 100 MG/2 ML VIAL IV SCH (10:02)
[2024-05-18] MEDS: PROPOFOL 10MG/ML 100ML 100 ML IV PRN (19:52)
[2024-05-19] VITALS (102 sets, daily range): BP systolic 76–150; BP diastolic 43–90; PULSE 0–129; RESP 15–29; TEMP 36.83628–38.00304; O2SAT 96–100
[2024-05-19 05:38] LABS: HEMATOCRIT. 27.1 % (36.0-48.0); HEMOGLOBIN. 8.1 g/dL (12.0-16.0); MEAN CORPUSCULAR HEMOGLOBIN 26.8 pg (28.0-32.0); MEAN CORPUSCULAR HGB CONC 29.9 g/dL (31.0-37.0); MEAN CORPUSCULAR VOLUME 89.7 fL (81.0-99.0); MEAN PLATELET VOLUME 9.3 fl (7.4-10.4); PLATELET 117 x1000/uL (130-400); RED BLOOD CELL COUNT 3.02 mill/uL (4.2-5.4); RED CELL DISTRIBUTION WIDTH 16.7 % (11.6-14.6); WHITE BLOOD COUNT 31.8 x1000/uL (4.5-11.0)
[2024-05-19 05:49] LABS: CHLORIDE 99 mEq/L (98-107); POTASSIUM 5.4 mEq/L (3.5-5.1); SODIUM 133 mEq/L (136-145)
[2024-05-19 05:50] LABS: CALCIUM 8.6 mg/dL (8.7-10.4); CARBON DIOXIDE 18 mEq/L (21-32)
[2024-05-19 05:55] LABS: GLUCOSE 350 mg/dL (70-105); TRIGLYCERIDE 317 mg/dL (0-150)
[2024-05-19 05:56] LABS: UREA NITROGEN BLOOD 50 mg/dL (9-23)
[2024-05-19 05:57] LABS: ALANINE AMINOTRANSFERASE 11 IU/L (10-49); ALBUMIN 3.5 g/dL (3.2-4.8); ASPARTATE AMINOTRANSFERASE 74 IU/L (<34); BILIRUBIN DIRECT 0.2 mg/dL (<=3.0); PHOSPHORUS 6.4 mg/dL (2.5-4.9)
[2024-05-19 05:57] LABS: PROTHROMBIN TIME 11.5 sec (9.6-11.0)
[2024-05-19 05:58] LABS: BILIRUBIN TOTAL 0.3 mg/dL (0.1-1.0); PROTEIN TOTAL 5.5 g/dL (6.0-8.3)
[2024-05-19 06:01] LABS: DIFFERENTIAL COMMENT 1
[2024-05-19] MEDS: SODIUM ZIRCONIUM CYCLOSILICATE 10GM/PACKET PO NR (09:51)
[2024-05-19] MEDS: PROPOFOL 10MG/ML 100ML 100 ML IV PRN (10:41)
[2024-05-19] MEDS: SODIUM BICARBONATE 100 MEQ in DEXTROSE 5% WATER 900 ML IV SCH (11:36)
[2024-05-19 12:11] LABS: BG FRACTION INSPIRED OXYGEN 50; BG SAMPLE SITE RIGHT RADIAL; BG TIDAL VOLUME(mL) 450 mL; BG VENT MODE AC; BG VENT RATE 20 set
[2024-05-19 12:12] LABS: BG BASE EXCESS -8.2 mmol/L (-2.0-3.0); BG HCO3 ACT 15.9 mmol/L (21.0-28.0); BG PCO2 27.9 mmHg (32.0-45.0); BG PEEP (cmH2O) 5 cmH2O; BG PH 7.375 (7.350-7.450); BG PO2 64.5 mmHg (83.0-108.0)
[2024-05-19 12:13] LABS: BG CARBOXYHEMOGLOBIN 0.3 % (0.5-1.5); BG DEOXYHEMOGLOBIN 9.5 % (0.0-5.0); BG OXYGEN SATURATION 90.5 % (94.0-98.0); BG OXYHEMOGLOBIN 90.2 % (94.0-98.0); BG TOTAL HEMOGLOBIN 8.6 g/dL (12.0-16.0)
[2024-05-19] MEDS ORDERED: [UNRECOGNIZED DRUG - OTHER] XX SCH (16:15)
[2024-05-19] MEDS: DEXMEDETOMIDINE 400 MCG/100 ML 100 ML IV PRN (17:17)
[2024-05-19] MEDS: INSULIN LISPRO 100 UNITS/ML SUBCUT SCH (17:25)
[2024-05-19] MEDS: INSULIN GLARGINE 100 UNITS/ML SUBCUT SCH (21:11)
[2024-05-19] MEDS: NOREPINEPHRINE 32 MG in SODIUM CHLORIDE 0.9% 218 ML IV PRN (22:16)
[2024-05-20] VITALS (108 sets, daily range): BP systolic 66–140; BP diastolic 29–88; PULSE 72–124; RESP 0–38; TEMP 36.61404–39.33648; O2SAT 91–100
[2024-05-20 05:18] LABS: HEMOGLOBIN. 7.6 g/dL (12.0-16.0); MEAN CORPUSCULAR HGB CONC 31.6 g/dL (31.0-37.0); MEAN CORPUSCULAR VOLUME 85.4 fL (81.0-99.0); MEAN PLATELET VOLUME 9.8 fl (7.4-10.4); PLATELET 102 x1000/uL (130-400); RED BLOOD CELL COUNT 2.81 mill/uL (4.2-5.4); RED CELL DISTRIBUTION WIDTH 16.1 % (11.6-14.6); WHITE BLOOD COUNT 25.3 x1000/uL (4.5-11.0)
[2024-05-20 05:20] LABS: POTASSIUM 5.7 mEq/L (3.5-5.1)
[2024-05-20 05:21] LABS: CALCIUM 8.2 mg/dL (8.7-10.4)
[2024-05-20 05:44] LABS: CREATININE 6.8 mg/dL (0.6-1.0)
[2024-05-20 05:52] LABS: DIFFERENTIAL COMMENT 1
[2024-05-20] MEDS: ACETAMINOPHEN 650MG/20.3ML UDC PO PRN (08:50)
[2024-05-20] MEDS: PHENYLEPHRINE 100 MG in SODIUM CHLORIDE 0.9% 240 ML IV PRN (08:51)
[2024-05-20 11:42] LABS: NUCLEATED RED BLOOD CELLS 3 /100 WBC
[2024-05-20 11:43] LABS: ANISOCYTOSIS 1+; HYPOCHROMASIA 1+; PLATELET ESTIMATE SLIGHTLY DECREASED
[2024-05-20] MEDS ORDERED: DAPTOMYCIN 750 MG in SODIUM CHLORIDE 0.9% 50 ML IV SCH (11:45)
[2024-05-20] MEDS: INSULIN GLARGINE 100 UNITS/ML SUBCUT SCH (11:47)
[2024-05-20] MEDS: DAPTOMYCIN 700 MG in SODIUM CHLORIDE 0.9% 50 ML IV SCH (13:17)
[2024-05-20 15:54] LABS: ANISOCYTOSIS 1+; NUCLEATED RED BLOOD CELLS 8 /100 WBC; PLATELET ESTIMATE DECREASED
[2024-05-20] MEDS ORDERED: VANCOMYCIN 500MG PREMIX 100 ML IV SCH (21:00)
[2024-05-20] MEDS ORDERED: INSULIN GLARGINE 100 UNITS/ML SUBCUT SCH (22:00)
[2024-05-21] VITALS (118 sets, daily range): BP systolic 75–217; BP diastolic 14–141; PULSE 50–110; RESP 22–38; TEMP 37.83636–39.4476; O2SAT 90–100
[2024-05-21 05:47] LABS: INR 1.1; PROTHROMBIN TIME 12.6 sec (9.6-11.0)
[2024-05-21 05:49] LABS: CHLORIDE 93 mEq/L (98-107); POTASSIUM 4.9 mEq/L (3.5-5.1); SODIUM 132 mEq/L (136-145)
[2024-05-21 05:50] LABS: CALCIUM 6.8 mg/dL (8.7-10.4); CARBON DIOXIDE 20 mEq/L (21-32)
[2024-05-21 05:55] LABS: GLUCOSE 268 mg/dL (70-105)
[2024-05-21 05:56] LABS: UREA NITROGEN BLOOD 58 mg/dL (9-23)
[2024-05-21 05:57] LABS: ALANINE AMINOTRANSFERASE 15 IU/L (10-49); ALBUMIN 2.8 g/dL (3.2-4.8); ASPARTATE AMINOTRANSFERASE 163 IU/L (<34); BILIRUBIN DIRECT 0.2 mg/dL (<=3.0); CREATINE KINASE 688 IU/L (34-145); HEMATOCRIT. 25.6 % (36.0-48.0); MEAN CORPUSCULAR HEMOGLOBIN 26.8 pg (28.0-32.0); MEAN CORPUSCULAR VOLUME 86.4 fL (81.0-99.0); PLATELET 62 x1000/uL (130-400); RED BLOOD CELL COUNT 2.97 mill/uL (4.2-5.4); RED CELL DISTRIBUTION WIDTH 16.3 % (11.6-14.6); WHITE BLOOD COUNT 33.9 x1000/uL (4.5-11.0)
[2024-05-21 05:58] LABS: BILIRUBIN TOTAL 0.4 mg/dL (0.1-1.0); CREATININE 5.9 mg/dL (0.6-1.0); PHOSPHORUS 6.6 mg/dL (2.5-4.9); PROTEIN TOTAL 4.9 g/dL (6.0-8.3)
[2024-05-21 06:24] LABS: DIFFERENTIAL COMMENT 1
[2024-05-21 09:06] LABS: ANISOCYTOSIS 1+; NUCLEATED RED BLOOD CELLS 9 /100 WBC; PLATELET ESTIMATE MARKEDLY DECREASED
[2024-05-21] MEDS: LIDOCAINE HCL 1% 10 MG/ML 10ML VIAL ONE ×2 (10:12)
[2024-05-21] MEDS: SODIUM BICARBONATE 4% 2.4MEQ/5ML VIAL IV ONE ×2 (10:12)
[2024-05-21 12:39] LABS: BG BASE EXCESS -6.4 mmol/L (-2.0-3.0); BG CARBOXYHEMOGLOBIN 0.3 % (0.5-1.5); BG DEOXYHEMOGLOBIN 2.7 % (0.0-5.0); BG FRACTION INSPIRED OXYGEN 40; BG HCO3 ACT 15.9 mmol/L (21.0-28.0); BG METHEMOGLOBIN 0.3 % (0.5-1.5); BG OXYGEN SATURATION 97.3 % (94.0-98.0); BG OXYHEMOGLOBIN 96.7 % (94.0-98.0); BG PCO2 22.3 mmHg (32.0-45.0); BG PH 7.472 (7.350-7.450); BG PO2 96.3 mmHg (83.0-108.0); BG SAMPLE SITE RIGHT RADIAL; BG TOTAL HEMOGLOBIN 9.4 g/dL (12.0-16.0); BG VENT MODE VENT - AC
[2024-05-21 17:00] LABS: LACTIC ACID 10.8 mmol/L (0.4-2.0)
[2024-05-21] MEDS: WATER IV SCH (20:45)
[2024-05-21] MEDS: FENTANYL 2500MCG/250ML PMX 250 ML IV PRN (20:45)
[2024-05-21] MEDS: TRIMETHOPRIM IV SCH (20:45)
[2024-05-21] MEDS: SULFAMETHOXAZOLE IV SCH (20:45)
[2024-05-21] MEDS: DEXT 5% IV SCH (20:45)
[2024-05-21 21:54] LABS: BG BASE EXCESS -14.1 mmol/L (-2.0-3.0); BG CARBOXYHEMOGLOBIN 0.3 % (0.5-1.5); BG DEOXYHEMOGLOBIN 4.5 % (0.0-5.0); BG FRACTION INSPIRED OXYGEN 40; BG HCO3 ACT 9.8 mmol/L (21.0-28.0); BG METHEMOGLOBIN 0.1 % (0.5-1.5); BG OXYGEN SATURATION 95.5 % (94.0-98.0); BG OXYHEMOGLOBIN 95.1 % (94.0-98.0); BG PCO2 18.4 mmHg (32.0-45.0); BG PH 7.346 (7.350-7.450); BG PO2 88.8 mmHg (83.0-108.0); BG SAMPLE SITE RIGHT RADIAL; BG TOTAL HEMOGLOBIN 8.8 g/dL (12.0-16.0); BG VENT MODE VENT - AC
[2024-05-21] MEDS: SODIUM BICARBONATE 8.4% 50MEQ/50ML SYR IV NR (23:44)
[2024-05-22] VITALS (111 sets, daily range): BP systolic 45–151; BP diastolic 11–118; PULSE 66–135; RESP 20–36; TEMP 36.00288–37.89192; O2SAT 25–100
[2024-05-22] MEDS: SODIUM BICARBONATE 100 MEQ in SODIUM CHLORIDE 0.45% 900 ML IV SCH (00:50)
[2024-05-22 05:40] LABS: INR 1.5; PROTHROMBIN TIME 16.3 sec (9.6-11.0)
[2024-05-22 05:47] LABS: HEMATOCRIT. 25.6 % (36.0-48.0); MEAN CORPUSCULAR HEMOGLOBIN 26.6 pg (28.0-32.0); MEAN CORPUSCULAR HGB CONC 31.4 g/dL (31.0-37.0); MEAN CORPUSCULAR VOLUME 84.7 fL (81.0-99.0); MEAN PLATELET VOLUME 10.7 fl (7.4-10.4); RED BLOOD CELL COUNT 3.02 mill/uL (4.2-5.4); RED CELL DISTRIBUTION WIDTH 16.2 % (11.6-14.6); WHITE BLOOD COUNT 30.4 x1000/uL (4.5-11.0)
[2024-05-22 05:49] LABS: CHLORIDE 93 mEq/L (98-107); POTASSIUM 6.1 mEq/L (3.5-5.1); SODIUM 131 mEq/L (136-145)
[2024-05-22 05:50] LABS: CARBON DIOXIDE 17 mEq/L (21-32)
[2024-05-22 05:51] LABS: CALCIUM 6.7 mg/dL (8.7-10.4)
[2024-05-22 05:55] LABS: GLUCOSE 168 mg/dL (70-105); UREA NITROGEN BLOOD 83 mg/dL (9-23)
[2024-05-22 05:57] LABS: ALANINE AMINOTRANSFERASE 47 IU/L (10-49); ALBUMIN 2.9 g/dL (3.2-4.8); ASPARTATE AMINOTRANSFERASE 557 IU/L (<34)
[2024-05-22 05:58] LABS: BILIRUBIN DIRECT 0.4 mg/dL (<=3.0); BILIRUBIN TOTAL 0.7 mg/dL (0.1-1.0); PROTEIN TOTAL 4.8 g/dL (6.0-8.3)
[2024-05-22] MEDS: DEXTROSE 50% WATER 50ML SYRINGE IV PRN (06:42)
[2024-05-22 06:47] LABS: CREATININE 6.6 mg/dL (0.6-1.0); PHOSPHORUS 9.2 mg/dL (2.5-4.9)
[2024-05-22 07:15] LABS: DIFFERENTIAL COMMENT 1; PLATELET 50 x1000/uL (130-400)
[2024-05-22] MEDS ORDERED: CALCIUM GLUCONATE 1GM PREMIX 100 ML IV STA (07:41)
[2024-05-22] MEDS: INSULIN REGULAR (HUMULIN R) 1000UNITS/10ML VIAL IV STA (08:18)
[2024-05-22] MEDS: DEXTROSE 50% WATER 50ML SYRINGE IV STA (08:28)
[2024-05-22] MEDS: CALCIUM GLUCONATE 1GM PREMIX 100 ML IV SCH (08:28)
[2024-05-22] MEDS: SODIUM ZIRCONIUM CYCLOSILICATE 10GM/PACKET PO NR (08:28)
[2024-05-22] MEDS: CALCIUM GLUCONATE 1GM PREMIX 50 ML IV SCH (09:28)
[2024-05-22 09:58] LABS: ANISOCYTOSIS 1+; NUCLEATED RED BLOOD CELLS 7 /100 WBC; PLATELET ESTIMATE MARKEDLY DECREASED
[2024-05-22 10:03] LABS: BG CARBOXYHEMOGLOBIN 0.3 % (0.5-1.5); BG DEOXYHEMOGLOBIN 3.9 % (0.0-5.0); BG FRACTION INSPIRED OXYGEN 40; BG HCO3 ACT 11.5 mmol/L (21.0-28.0); BG OXYGEN SATURATION 96.1 % (94.0-98.0); BG OXYHEMOGLOBIN 95.8 % (94.0-98.0); BG PCO2 22.7 mmHg (32.0-45.0); BG PH 7.324 (7.350-7.450); BG PO2 95.3 mmHg (83.0-108.0); BG SAMPLE SITE LEFT BRACHIAL; BG TOTAL HEMOGLOBIN 8.2 g/dL (12.0-16.0); BG TOTAL RESPIRATORY RATE 26 b/min; BG VENT MODE VENT - AC
[2024-05-22] MEDS ORDERED: VASOPRESSIN 20 UNIT in SODIUM CHLORIDE 0.9% 99 ML IV PRN (15:30)
[2024-05-22] MEDS: DOPAMINE 800MG PREMIX (DOUBLE) 250 ML IV PRN (16:57)
[2024-05-22 17:26] LABS: T4 FREE 0.52 ng/dL (0.89-1.76)
[2024-05-22 17:27] LABS: THYROID STIMULATING HORMONE 0.29 uIU/mL (0.55-4.78)
[2024-05-22] MEDS: INSULIN GLARGINE 100 UNITS/ML SUBCUT SCH (22:00)
[2024-05-22 23:32] LABS: CHLORIDE 93 mEq/L (98-107); POTASSIUM 5.6 mEq/L (3.5-5.1); SODIUM 130 mEq/L (136-145)
[2024-05-22 23:38] LABS: GLUCOSE 228 mg/dL (70-105); UREA NITROGEN BLOOD 68 mg/dL (9-23)
[2024-05-22 23:52] LABS: CREATININE 5.3 mg/dL (0.6-1.0)
[2024-05-22 23:55] LABS: CARBON DIOXIDE < 10 mEq/L (21-32)
[2024-05-23] VITALS (86 sets, daily range): BP systolic 34–183; BP diastolic 13–145; PULSE 0–122; RESP 0–37; TEMP 32.94708–37.05852; O2SAT 40–84
[2024-05-23] MEDS: SODIUM BICARBONATE 8.4% 50MEQ/50ML SYR IV NR (00:48)
[2024-05-23] MEDS: SODIUM POLYSTYRENE SULFONATE 15 G/60 ML BOT PO NR (00:49)
[2024-05-23 05:53] LABS: MEAN CORPUSCULAR HEMOGLOBIN 26.9 pg (28.0-32.0); MEAN CORPUSCULAR HGB CONC 28.9 g/dL (31.0-37.0); MEAN CORPUSCULAR VOLUME 93.1 fL (81.0-99.0); MEAN PLATELET VOLUME 10.8 fl (7.4-10.4); RED BLOOD CELL COUNT 1.95 mill/uL (4.2-5.4); RED CELL DISTRIBUTION WIDTH 17.4 % (11.6-14.6); WHITE BLOOD COUNT 20.2 x1000/uL (4.5-11.0)
[2024-05-23 05:56] LABS: INR 2.1; PROTHROMBIN TIME 21.8 sec (9.6-11.0)
[2024-05-23 06:07] LABS: HEMATOCRIT. 18.1 % (36.0-48.0); HEMOGLOBIN. 5.2 g/dL (12.0-16.0)
[2024-05-23 06:08] LABS: CARBON DIOXIDE 10 mEq/L (21-32); CHLORIDE 94 mEq/L (98-107); SODIUM 135 mEq/L (136-145)
[2024-05-23 06:09] LABS: CALCIUM 6.1 mg/dL (8.7-10.4)
[2024-05-23 06:14] LABS: GLUCOSE 165 mg/dL (70-105)
[2024-05-23 06:15] LABS: ALANINE AMINOTRANSFERASE 234 IU/L (10-49); ALBUMIN 1.7 g/dL (3.2-4.8); UREA NITROGEN BLOOD 72 mg/dL (9-23)
[2024-05-23 06:16] LABS: BILIRUBIN DIRECT 0.9 mg/dL (<=3.0)
[2024-05-23 06:17] LABS: BILIRUBIN TOTAL 1.2 mg/dL (0.1-1.0); PROTEIN TOTAL 2.9 g/dL (6.0-8.3)
[2024-05-23 06:19] LABS: DIFFERENTIAL COMMENT 1
[2024-05-23 06:20] LABS: PLATELET 29 x1000/uL (130-400)
[2024-05-23 06:30] LABS: ASPARTATE AMINOTRANSFERASE 4096 IU/L (<34)
[2024-05-23 07:03] LABS: CREATININE 5.3 mg/dL (0.6-1.0); PHOSPHORUS 14.4 mg/dL (2.5-4.9)
[2024-05-23 08:42] LABS: BG CARBOXYHEMOGLOBIN 0.3 % (0.5-1.5); BG DEOXYHEMOGLOBIN 29.5 % (0.0-5.0); BG FRACTION INSPIRED OXYGEN 100; BG METHEMOGLOBIN 0.5 % (0.5-1.5); BG OXYGEN SATURATION 70.3 % (94.0-98.0); BG OXYHEMOGLOBIN 69.7 % (94.0-98.0); BG PH 6.796 (7.350-7.450); BG PO2 58.5 mmHg (83.0-108.0); BG SAMPLE SITE RIGHT RADIAL; BG TOTAL HEMOGLOBIN 5.1 g/dL (12.0-16.0); BG TOTAL RESPIRATORY RATE 20 b/min; BG VENT MODE VENT - P/C
[2024-05-23] MEDS: SODIUM ZIRCONIUM CYCLOSILICATE 10GM/PACKET PO SCH (08:45)
[2024-05-23] MEDS: DEXTROSE 50% WATER 50ML SYRINGE IV SCH (08:45)
[2024-05-23] MEDS: INSULIN REGULAR (HUMULIN R) 1000UNITS/10ML VIAL IV SCH (08:45)
[2024-05-23] MEDS: SODIUM BICARBONATE 8.4% 50MEQ/50ML SYR IV STA (08:55)
[2024-05-23] MEDS: CALCIUM GLUCONATE 1,000 MG in DEXT 5% WATER 90 ML IV STA (08:55)
[2024-05-23 09:59] LABS: POTASSIUM 5.9 mEq/L (3.5-5.1)
[2024-05-23 10:00] LABS: HEMATOCRIT 21.4 % (36.0-48.0); HEMOGLOBIN 6.4 g/dL (12.0-16.0); INR 2.8; PROTHROMBIN TIME 29.3 sec (9.6-11.0)
[2024-05-23] MEDS ORDERED: EPINEPHRINE 20 MG in SODIUM CHLORIDE 0.9% 480 ML IV PRN (11:00)
[2024-05-23 21:29] LABS: ANISOCYTOSIS 1+; PLATELET ESTIMATE MARKEDLY DECREASED
[2024-06-02] MEDS ORDERED: ENOXAPARIN 100MG/ML SYR SUBCUT SCH (18:00)
== END 2024-05-23 15:24 | DRG 870 ==
LOC: ER 14:53 → EDBEDREQTM 17:56 → EDBEDREQ 17:56 → MICUSO 21:43 → 5WST 05-01 11:47 → 7WST 05-01 23:35 → 5EST 05-17 09:34 → MICUSO 05-17 16:14
PROVIDERS: ADMIT Internal Medicine; ATTEND Internal Medicine
PROC: 02HV33Z Insertion of Infusion Device into Superior Vena Cava, Percutaneous Approach (ICD-10-PCS; 2024-05-04)
PROC: B5181ZA Fluoroscopy of Superior Vena Cava using Low Osmolar Contrast, Guidance (ICD-10-PCS; 2024-05-04)
PROC: B548ZZA Ultrasonography of Superior Vena Cava, Guidance (ICD-10-PCS; 2024-05-04)
PROC: 5A1D70Z Performance of Urinary Filtration, Intermittent, Less than 6 Hours Per Day (ICD-10-PCS; 2024-05-05)
PROC: 0W9G3ZZ Drainage of Peritoneal Cavity, Percutaneous Approach (ICD-10-PCS; 2024-05-06)
PROC: 5A1D70Z Performance of Urinary Filtration, Intermittent, Less than 6 Hours Per Day (ICD-10-PCS; 2024-05-08)
PROC: 5A1D70Z Performance of Urinary Filtration, Intermittent, Less than 6 Hours Per Day (ICD-10-PCS; 2024-05-10)
PROC: 5A1D70Z Performance of Urinary Filtration, Intermittent, Less than 6 Hours Per Day (ICD-10-PCS; 2024-05-12)
PROC: 0W9G3ZZ Drainage of Peritoneal Cavity, Percutaneous Approach (ICD-10-PCS; 2024-05-13)
PROC: 5A1D70Z Performance of Urinary Filtration, Intermittent, Less than 6 Hours Per Day (ICD-10-PCS; 2024-05-14)
PROC: 5A1D70Z Performance of Urinary Filtration, Intermittent, Less than 6 Hours Per Day (ICD-10-PCS; 2024-05-15)
PROC: 5A1D70Z Performance of Urinary Filtration, Intermittent, Less than 6 Hours Per Day (ICD-10-PCS; 2024-05-16)
PROC: 5A1D70Z Performance of Urinary Filtration, Intermittent, Less than 6 Hours Per Day (ICD-10-PCS; 2024-05-17)
PROC: 5A1955Z Respiratory Ventilation, Greater than 96 Consecutive Hours (ICD-10-PCS; principal; 2024-05-18)
PROC: 0BH17EZ Insertion of Endotracheal Airway into Trachea, Via Natural or Artificial Opening (ICD-10-PCS; 2024-05-18)
PROC: 5A1D70Z Performance of Urinary Filtration, Intermittent, Less than 6 Hours Per Day (ICD-10-PCS; 2024-05-20)
PROC: 5A1D70Z Performance of Urinary Filtration, Intermittent, Less than 6 Hours Per Day (ICD-10-PCS; 2024-05-22)
PROC: 30233K1 Transfusion of Nonautologous Frozen Plasma into Peripheral Vein, Percutaneous Approach (ICD-10-PCS; 2024-05-23)
PROC: 30233N1 Transfusion of Nonautologous Red Blood Cells into Peripheral Vein, Percutaneous Approach (ICD-10-PCS; 2024-05-23)
PROC: 5A12012 Performance of Cardiac Output, Single, Manual (ICD-10-PCS; 2024-05-23)
DX: A41.9 Sepsis, unspecified organism (principal); G93.41 Metabolic encephalopathy; R65.21 Severe sepsis with septic shock; J96.01 Acute respiratory failure with hypoxia; K65.2 Spontaneous bacterial peritonitis; N17.0 Acute kidney failure with tubular necrosis; N18.6 End stage renal disease; J15.69 Pneumonia due to other Gram-negative bacteria; E87.1 Hypo-osmolality and hyponatremia; R18.8 Other ascites; I12.0 Hypertensive chronic kidney disease with stage 5 chronic kidney disease or end stage renal disease; M62.82 Rhabdomyolysis; D68.9 Coagulation defect, unspecified; E87.5 Hyperkalemia; E11.22 Type 2 diabetes mellitus with diabetic chronic kidney disease; E78.00 Pure hypercholesterolemia, unspecified; Z20.822 Contact with and (suspected) exposure to COVID-19; K74.60 Unspecified cirrhosis of liver; G40.909 Epilepsy, unspecified, not intractable, without status epilepticus; Z99.2 Dependence on renal dialysis; E78.1 Pure hyperglyceridemia; M10.9 Gout, unspecified; D64.9 Anemia, unspecified; E83.39 Other disorders of phosphorus metabolism; E11.65 Type 2 diabetes mellitus with hyperglycemia; G93.89 Other specified disorders of brain; D25.9 Leiomyoma of uterus, unspecified; I69.398 Other sequelae of cerebral infarction; Z79.84 Long term (current) use of oral hypoglycemic drugs; Z79.899 Other long term (current) drug therapy; I46.9 Cardiac arrest, cause unspecified
CPT/HCPCS: 36415; 36556; 36573; 36600; 49083; 71045; 74018; 74176; 76705; 76770; 77001; 78580; 80048; 80053; 80061; 80076; 80202; 80305; 81003; 82140; 82248; 82375; 82550; 82553; 82805; 82962; 83036; 83605; 83735; 83880; 84100; 84132; 84145; 84439; 84443; 84478; 84480; 84484; 85014; 85018; 85025; 85379; 85384; 86705; 86706; 86709; 86850; 86900; 86920; 86927; 87070; 87077; 87186; 87340; 87426; 87804; 90935; 93005; 93306; 93970; 94003; 94640; 94660; 99291; A6261; C1725; C1752; C1887; C1893; J0610; J0696; J0878; J1265; J1642; J1644; J1650; J1720; J1815; J2185; J2405; J2543; J2704; J3370; J3490; J7030; J7040; J7050; J7060; J7070; P9016; P9017; P9047; Q9957